=== PATIENT | female | born 1950 | race Caucasian/White ===

== ENCOUNTER 2017-05-27 11:02 | Emergency (ER) | payer MEDICARE ==
[~2017-05-27] VITALS: Ht 167.6 cm; Wt 103.6 kg
[2017-05-27] MEDS ORDERED: METF500T7 PO (11:06)
[2017-05-27] MEDS ORDERED: GLIP5TAB11 PO (11:06)
[2017-05-27] MEDS ORDERED: SIMV-259 PO (11:06)
[2017-05-27] MEDS ORDERED: HYDR25TA PO (11:06)
[2017-05-27] MEDS ORDERED: METF500T4 PO (11:27)
[2017-05-27] MEDS ORDERED: GLIP10 PO (11:27)
[2017-05-27 12:24] LABS: GLUCOSE,POINT OF CARE 125 MG/DL (70-110)
[2017-05-27 12:39] LABS: BASOPHILS % (AUTO) 0.3 % (0.0-2.0); EOSINOPHILS % (AUTO) 0.8 % (1.0-6.0); HEMATOCRIT 36.2 % (36-46); HEMOGLOBIN 12.3 g/dL (12.0-16.0); LYMPHOCYTES # (AUTO) 1.9 K/uL (1.0-4.8); LYMPHOCYTES % (AUTO) 26.2 % (22.0-44.0); MEAN CORPUSCULAR HEMOGLOBIN 28.7 pg (26.0-34.0); MEAN CORPUSCULAR HGB CONC 33.9 G/dL (31.0-37.0); MEAN CORPUSCULAR VOLUME 85 fL (80-100); MONOCYTES # (AUTO) 0.3 K/uL (0.1-1.0); MONOCYTES % (AUTO) 3.7 % (2.0-9.0); NEUTROPHILS # (AUTO) 5.1 K/uL (1.8-7.7); PLATELET COUNT (AUTO) 257 K/uL (150-450); RED BLOOD CELL COUNT(AUTO) 4.28 MIL/uL (4.00-5.20); RED CELL DISTRIBUTION WIDTH 13.6 % (11.5-14.5)
[2017-05-27 12:44] LABS: APPEARANCE,URINE CLEAR (CLEAR); BILIRUBIN,URINE NEGATIVE (NEGATIVE); GLUCOSE, URINE (UA) NEGATIVE (NEGATIVE); KETONES,URINE NEGATIVE (NEGATIVE); LEUKOCYTE ESTERASE ,URINE TRACE (NEGATIVE); NITRATE,URINE NEGATIVE (NEGATIVE); OCCULT BLOOD,URINE NEGATIVE (NEGATIVE); PH,URINE 6.5 (5.0-8.0); PROTEIN,URINE NEGATIVE (NEGATIVE); UROBILINOGEN,URINE 0.2 mg/dL (<=1.0)
[2017-05-27] MEDS: HYDROCHLOROTHIAZIDE 25 MG TABLET PO ONE ×2 (12:53→13:24)
[2017-05-27] MEDS: VALSARTAN 80 MG TABLET PO ONE ×2 (12:53→13:24)
[2017-05-27 12:58] LABS: ANION GAP 10 mmol/L (8-16); CARBON DIOXIDE 29 mmol/L (22-29); CHLORIDE 104 mmol/L (98-107); GLOMERULAR FILTR. RATE CALC > 60 mL/min (>60); GLUCOSE,RANDOM 127 mg/dL (70-110); POTASSIUM 3.7 mmol/L (3.5-5.1); SODIUM SERUM 143 mmol/L (136-145); UREA NITROGEN, BLOOD 14 mg/dL (7-18)
[2017-05-27 13:03] LABS: ALANINE AMINOTRANSFERASE 46 U/L (12-78); ALBUMIN 3.5 g/dL (3.4-5.0); ALKALINE PHOSPHATASE 93 U/L (46-116); ASPARTATE AMINOTRANSFERASE 23 U/L (15-37); BILIRUBIN,TOTAL 0.4 mg/dL (0.1-1.0); TOTAL PROTEIN, SERUM 7.5 g/dL (6.4-8.2)
[2017-05-27 13:06] LABS: B-TYPE NATRIURETIC PEPTIDE 117 pg/mL (0-100)
[2017-05-27 13:07] LABS: BACTERIA,URINE None Seen /HPF (None Seen); RBC,URINE None Seen /HPF (0-2); SQUAMOUS EPITHELIAL CELL,UR Few /LPF (None Seen); WBC,URINE 0-2 /HPF (0-5)
[2017-05-27 13:27] VITALS: BP 142/76
== END 2017-05-27 14:25 | disposition home or self-care (01) ==
LOC: EMS 11:04
DX: R07.89 Other chest pain (principal); I10 Essential (primary) hypertension; E11.9 Type 2 diabetes mellitus without complications; E78.00 Pure hypercholesterolemia, unspecified; Z91.14 Patient's other noncompliance with medication regimen
CPT/HCPCS: 82962; 93005; 99285